=== PATIENT | male | born 1980 | race American Indian/Alaskan Native ===

== ENCOUNTER 2022-02-05 16:18 | Emergency (ER) | payer SELFPAY ==
[2022-02-05 17:00] VITALS: BP 156/90
[2022-02-05] MEDS ORDERED: IBUPROFEN 600 MG TAB PO ONE (22:03)
[2022-02-05] MEDS ORDERED: SULFAMETHOXAZOLE/TRIMETHOPRIM 800/160MG DS TAB PO ONE (22:03)
--- NOTE | 2022-02-05 22:03 | Emergency Department Report ---
ED General Adult HPI - General Chief complaint: Urogenital-Male Stated complaint: SUSPICIOUS BUMP PRIVATE AREA PUI?: No Source: patient Mode of arrival: Ambulatory Limitations: No Limitations - History of Present Illness Initial comments: Patient is a 41-year-old -[place] male with a history of hypertension and [id number] diabetes who presents to the ED with complaint of acute onset persistent mildly painful swollen rash on right gluteal cleft for the last 5 days. Patient states that the swelling of the pain is worsened in the last 2 days. Patient denies fever, chills, nausea and vomiting, dizziness, syncope, chest pain or shortness of breath, abdominal pain, cough, traumatic injury or numbness and tingling or weakness of lower extremities bilaterally. MD Complaint: painful swollen rash on right gluteal cleft -: Sudden, days(s) (5) Location: buttocks Radiation: non-radiation Severity scale (0 -10): 4 Quality: aching, dull Consistency: constant Improves with: none Worsens with: none Associated Symptoms: denies other symptoms, rash (swollen painful rash on right gluteal cleft). denies: confusion, chest pain, cough, diaphoresis, fever/chills, headaches, loss of appetite, malaise, nausea/vomiting, shortness of breath, syncope, weakness, other Treatments Prior to Arrival: none - Related Data Previous Rx's Medication Instructions Recorded Last Taken Type Ibuprofen [Motrin] 800 mg PO Q8HR PRN #24 tablet 02/05/22 Unknown Rx Sulfamethoxazole/Trimethoprim 1 each PO Q12H #20 tab 02/05/22 Unknown Rx [Bactrim DS TAB] ED Review of Systems ROS: Stated complaint: SUSPICIOUS BUMP PRIVATE AREA Other details as noted in HPI Constitutional: denies: chills, fever Eyes: denies: eye pain, eye discharge, vision change ENT: denies: ear pain, throat pain Respiratory: denies: cough, shortness of breath, wheezing Cardiovascular: denies: chest pain, palpitations Endocrine: no symptoms reported Gastrointestinal: denies: abdominal pain, nausea, vomiting, diarrhea Genitourinary: denies: urgency, dysuria Musculoskeletal: denies: back pain, joint swelling, arthralgia Skin: rash (Swollen, painful rash on right gluteal cleft), change in color. denies: lesions Neurological: denies: headache, weakness, paresthesias Psychiatric: denies: anxiety, depression Hematological/Lymphatic: denies: easy bleeding, easy bruising ED Past Medical Hx - Past Medical History Hx Hypertension: Yes Hx Diabetes: Yes - Surgical History Past Surgical History?: No - Social History Smoking Status: Never Smoker - Medications Home Medications: Home Medications Medication Instructions Recorded Confirmed Last Taken Type Ibuprofen [Motrin] 800 mg PO Q8HR PRN #24 tablet 02/05/22 Unknown Rx Sulfamethoxazole/Trimethoprim 1 each PO Q12H #20 tab 02/05/22 Unknown Rx [Bactrim DS TAB] ED Physical Exam - General Limitations: No Limitations General appearance: alert, in no apparent distress - Head Head exam: Present: atraumatic, normocephalic, normal inspection - Eye Eye exam: Present: normal appearance, PERRL, EOMI Pupils: Present: normal accommodation - ENT ENT exam: Present: normal exam, normal orophraynx, mucous membranes moist, TM's normal bilaterally, normal external ear exam - Neck Neck exam: Present: normal inspection, full ROM. Absent: tenderness - Respiratory Respiratory exam: Present: normal lung sounds bilaterally. Absent: respiratory distress, rales, rhonchi, stridor, chest wall tenderness, decreased breath sounds, prolonged expiratory - Cardiovascular Cardiovascular Exam: Present: normal rhythm, tachycardia, normal heart sounds. Absent: systolic murmur, diastolic murmur, rubs, gallop - GI/Abdominal GI/Abdominal exam: Present: soft, normal bowel sounds. Absent: tenderness, guarding, rebound, hyperactive bowel sounds, hypoactive bowel sounds, organomegaly - Rectal Rectal exam: Present: hemorrhoids (Nontender external hemorrhoids), other (Swollen, mildly tender mild erythematous maculopapular rash on right gluteal cleft) - Extremities Exam Extremities exam: Present: normal inspection, full ROM, normal capillary refill. Absent: tenderness - Back Exam Back exam: Present: normal inspection, full ROM. Absent: tenderness, CVA tenderness (R), CVA tenderness (L), muscle spasm, vertebral tenderness - Neurological Exam Neurological exam: Present: alert, oriented X3, CN II-XII intact, normal gait, reflexes normal - Psychiatric Psychiatric exam: Present: normal affect, normal mood - Skin Skin exam: Present: warm, dry, intact, rash (Mild erythematous maculopapular nonfluctuant rash on right gluteal cleft), erythema. Absent: normal color ED Course Vital Signs 02/05/22 16:57 Temperature 97.9 F Pulse Rate 101 H Respiratory 12 Rate Blood Pressure 156/90 O2 Sat by Pulse 99 Oximetry ED Medical Decision Making - Medical Decision Making This is a 41-year-old -[place] male with a history of hypertension and [id number] diabetes who presents to the ED with complaint of acute onset persistent mildly painful swollen rash on right gluteal cleft for the last 5 days. Patient states that the swelling of the pain is worsened in the last 2 days. In the ED, patient is alert and oriented x3 and is not in any distress. Patient is afebrile but slightly tachycardic. Patient was treated for pain in the ED, also given initial oral antibiotics, Bactrim DS p.o. x1. On reevaluation, patient's pain is well controlled medication. Patient will discharge home on pain medications and antibiotics and advised to follow-up with his primary care physician in 7 to 10 days for reevaluation or return to the ED immediately if symptoms get worse. - Differential Diagnosis Folliculitis; cutaneous abscess; cellulitis; Critical care attestation.: If time is entered above; I have spent that time in minutes in the direct care of this critically ill patient, excluding procedure time. ED Disposition Clinical Impression: Acute folliculitis, Cutaneous abscess of buttock, Cellulitis of right buttock Disposition: 01 HOME / SELF CARE / HOMELESS Is pt being admited?: No Does the pt Need Aspirin: No Condition: Stable Instructions: Skin Abscess, [id number], Folliculitis, Cellulitis, Adult, [id number] Additional Instructions: Take medication with food, drink plenty of fluids, follow-up with your primary care physician in 7 to 10 days for reevaluation. No alcohol consumption advised when taking this medication. Return to the ED immediately if symptoms get worse. Prescriptions: Sulfamethoxazole/Trimethoprim [Bactrim DS TAB] 1 each PO Q12H #20 tab Ibuprofen [Motrin] 800 mg PO Q8HR PRN #24 tablet PRN Reason: Pain , Severe (7-10) Referrals: [facility] [Provider Group] - 7-10 days Time of Disposition: 22:01 Print Language: SPANISH
== END 2022-02-06 00:13 | disposition home or self-care (01) ==
LOC: ED 16:18
DX: L73.9 Follicular disorder, unspecified (principal); L02.31 Cutaneous abscess of buttock; I10 Essential (primary) hypertension; E11.9 Type 2 diabetes mellitus without complications
CPT/HCPCS: 99282